=== PATIENT | male | born 1985 | race Caucasian/White ===

== ENCOUNTER 2025-03-22 17:49 | Emergency (ER) | payer SELFPAY ==
[2025-03-22 18:26] LABS: BASOPHILS ABSOLUTE AUTO 0.0 x10^3/uL (0.0-0.2); BASOPHILS PERCENT AUTO 0.3 % (0.2-1.2); EOSINOPHILS ABSOLUTE AUTO 0.2 x10^3/uL (0.0-0.5); EOSINOPHILS PERCENT AUTO 1.3 % (0.0-4.0); IMMATURE GRAN ABSOLUTE AUTO 0.17 x10^3/uL (0.00-0.07); IMMATURE GRAN PERCENT AUTO 1.50 % (0.00-0.43); LYMPHOCYTES ABSOLUTE AUTO 6.6 x10^3/uL (1.0-4.8); LYMPHOCYTES PERCENT AUTO 56.9 % (25.0-50.0); MONOCYTES ABSOLUTE AUTO 1.4 x10^3/uL (0.0-0.8); MONOCYTES PERCENT AUTO 11.6 % (2.0-11.0); NEUTROPHILS ABSOLUTE AUTO 3.3 x10^3/uL (1.8-7.7); NEUTROPHILS PERCENT AUTO 28.4 % (50.0-80.0); PLATELET COUNT,PLT 245 x10^3/uL (130-400); RED BLOOD CELL COUNT 5.11 x10^6/uL (4.5-6.0); WHITE BLOOD CELL COUNT,WBC 11.7 x10^3/uL (4.0-10.0)
[2025-03-22 18:39] LABS: A/G RATIO 1.03; ALANINE AMINOTRANSFERASE,ALT 109 U/L (16-63); ASPARTATE AMNIOTRANSFERASE,AST 67 U/L (15-37); BILIRUBIN TOTAL 0.3 mg/dL (0.2-1.0); BLOOD UREA NITROGEN,BUN 16 mg/dL (7-18); CARBON DIOXIDE,CO2 16 mmol/L (21-32); CHLORIDE,CL 102 mmol/L (98-107); CREATININE 1.7 mg/dL (0.70-1.30); GLUCOSE RANDOM 247 mg/dL (70-99); POTASSIUM,K 5.7 mmol/L (3.5-5.1); PROTEIN TOTAL,TP 6.3 g/dL (6.4-8.2); SODIUM,NA 147 mmol/L (136-145)
[2025-03-22 18:41] LABS: ESTIMATED GFR 53 mL/min (>=60)
[2025-03-22 18:43] LABS: D-DIMER QUANTITATIVE 2.25 mg/LFEU (<=0.58); INR 1.1 (0.9-1.1); PTT,PARTIAL THROMBOPLSTIN TIME 30.1 SEC (23.5-33.2)
== END 2025-03-22 19:41 | disposition expired ==
LOC: VM.ED 17:49
DX: I46.9 Cardiac arrest, cause unspecified (principal)
CPT/HCPCS: 31500; 36415; 80053; 84484; 85025; 85379; 85610; 85730; 92950; 99285; 99285-25